=== PATIENT | male | born 1965 | race Caucasian/White ===

== ENCOUNTER 2017-12-14 19:26 | Emergency (ER) | payer BC ==
--- NOTE | 2017-12-14 20:23 | ED Physician Chart ---
ED Chief Complaint/HPI - Patient Information Date Seen:: 12/14/17 Time Seen:: 20:22 Chief Complaint:: Scalp laceration History of Present Illness:: 52 yo male walked to ER due to a scalp laceration to the top of his head caused by car trunk lid hitting his head 30 minutes ago. At that time, patient was standing and moving stuff out of the trunk. Patient denied any nausea, vomiting or loss of consciousness. There was significant amount of bleeding from the scalp laceration. Allergies:: Allergies Allergy/AdvReac Type Severity Reaction Status Date / Time No Known Allergies Allergy Verified 12/14/17 20:01 Vitals:: Vital Signs - 8 hr 12/14/17 19:45 Temp 98.0 F HR 65 RR 18 BP 157/100 O2 Sat % 97 ED Review of Systems - Review of Systems General/Constitutional: No fever, No chills Skin: Skin lesions Head: Headache Eyes: No pain ENT: No nasal drainage Neck: No neck pain Cardio Vascular: No chest pain Pulmonary: No SOB GI: No nausea, No vomiting Musculoskeletal: No bone or joint pain Neurological: No focal symptoms ED Past Medical History - Past Medical History Past Medical History: No significant medical hx Social History: Non Smoker, No Alcohol, No Drug Use Family Medical History - Family Member Mother History Unknown: Yes ED Physical Exam - Physical Examination General/Constitutional: Awake Other Head comments:: A laceration 5cm in length on the left parietal scalp. Eyes: PERRL Skin: No ecchymosis ENMT: Nasal exam nl Neck: No nuchal rigidity Respiratory: No Wheeze/Rhonchi/Rales Cardio Vascular: RRR, No murmur, gallop, rubs, NL S1 S2 GI: No tenderness/rebounding/guarding Extremities: normal strength in all extremities Neuro/Psych: No focal deficits ED Assessment - Assessment General Assessment: Left parietal scalp laceration Head injury Assessment/Comments:: Scalp laceration repair Tylenol 650mg po x 1 D/c home Keflex 500mg tid x 10 days F/u PCP or return to ER if patient experience worsening headache, nausea or vomiting Remove toney in 7 days if the wound healing is adequate - Procedures Procedures:: Laceration repair: cleaned with NS, hydrogen peroxide and betadine, 5 toney were used to close the laceration, bacitracin topically was applied. Patient tolerated the procedure well. Informed Consent: Procedure/risk/benefits explained by MD: Yes ED Septic Shock - . Is Septic Shock (SBP<90, OR Lactate>4 mmol\L) present?: No - <6hrs of presentation: Vital Signs: Vital Signs - 8 hr 12/14/17 19:45 Temp 98.0 F HR 65 RR 18 BP 157/100 O2 Sat % 97 ED Reassessment (Disposition) - Reassessment Reassessment Condition:: Improved - Patient Disposition Discharge/Transfer:: Home ED Discharge Plan - Patient Disposition Admit/Discharge/Transfer: PT DISCHARGED HOME Condition at Disposition: Improved Instructions: Head Injury, Adult, Staple Wound Closure, [id number]
[2017-12-14] MEDS ORDERED: Bacitracin pkt 1 gm Pkt TP STA (20:24)
== END 2017-12-14 20:20 | disposition home or self-care (01) ==
LOC: ER 19:26
DX: S01.01XA Laceration without foreign body of scalp, initial encounter (principal); W22.8XXA Striking against or struck by other objects, initial encounter; Y93.89 Activity, other specified; Y92.89 Other specified places as the place of occurrence of the external cause; Y99.8 Other external cause status
CPT/HCPCS: 12002; Z7502; Z7610